=== PATIENT | male | born 1980 ===

== ENCOUNTER 2018-07-16 15:45 | Emergency (ER) | payer OTHER ==
[2018-07-16] MEDS ORDERED: amLODIPine BESYLATE 5 MG TABLET PO ONE (16:18)
[2018-07-16] MEDS ORDERED: HYDROCHLOROTHIAZIDE 25 MG TABLET PO ONE ×2 (16:18→16:33)
[2018-07-16] MEDS ORDERED: ACETAMINOPHEN 500 MG TABLET PO ONE (16:20)
[2018-07-16 17:14] LABS: eGFR (Non-African) > 60
[2018-07-16 17:16] LABS: MEAN CORPUSCULAR HEMOGLOBIN 21.8 pg (28.0-34.0)
[2018-07-16 17:17] LABS: BASOPHILS % 0.6 (0.0-1.5); EOSINOPHILS % 1.9 % (0.0-6.8); MONOCYTES % 6.1 % (0.0-11.0); NEUTROPHILS # 4.3 # k/uL (1.4-7.7)
[2018-07-16 17:24] LABS: APPEARANCE,URINE CLEAR (CLEAR); COLOR,URINE YELLOW (YELLOW); OCCULT BLOOD,URINE NEGATIVE (NEGATIVE)
[2018-07-16 17:25] LABS: AMORPHOUS SEDIMENT,UR FEW (NEGATIVE); UROBILINOGEN URINE 0.2 Eu (0.2-1.0)
--- NOTE | 2018-07-16 17:25 | ED Physician Documentation ---
General Adult - HISTORIAN Historian: patient - HPI Stated Complaint: DUNCAN with possible high blood pressure Chief Complaint: General Adult Additional Information: Out of BP meds for 3 weeks. DUNCAN since last evening. Just doesn't feel good today. [facility]. Takes amlodipine 5 mg daily and HCTZ 25 mg daily. - ROS CONST: other (above) - PAST HX Past History: hypertension, other (RLS, pre-daibetic) Allergies/Adverse Reactions: Allergies Allergy/AdvReac Type Severity Reaction Status Date / Time No Known Allergies Allergy Verified 07/16/18 16:11 Home Medications: Ambulatory Orders Medication Instructions Recorded Hydrochlorothiazide 25 mg PO DAILY #10 tablet 07/16/18 Hydrochlorothiazide [Hydrodiuril] 25 mg PO DAILY 07/16/18 Ropinirole HCl [Requip] 0.5 mg PO TID 07/16/18 amLODIPine BESYLATE [Norvasc] 5 mg PO 0900 #10 tablet 07/16/18 amLODIPine BESYLATE [Norvasc] 5 mg PO QDAY 07/16/18 - SOCIAL HX Smoking History: chew (quit 6 months ago. Using nicotine gum. ) - FAMILY HX Family History: Yes (MS, DM, HTN) - VITAL SIGNS Vital Signs: Vital Signs Temp Pulse Resp BP Pulse Ox 98.0 F 110 H 20 174/119 94 07/16/18 15:46 07/16/18 15:46 07/16/18 15:46 07/16/18 15:46 07/16/18 15:46 - REVIEWED ASSESSMENTS Nursing Assessment Reviewed: Yes Vitals Reviewed: Yes Progress - Progress Progress: 1720, BP 124/77. DUNCAN much improved. Home. ED Results Lab/Radiology - Lab Results Lab Results: Lab Results 07/16/18 07/16/18 16:35 16:35 WBC 7.60 K/ul K/ul (4.00-12.00) RBC 6.57 M/ul H M/ul (3.90-5.20) Hgb 14.3 g/dL g/dL (12.0-18.0) Hct 44.6 % % (37.0-53.0) MCV 68.0 fl L fl (80.0-100.0) MCH 21.8 pg L pg (28.0-34.0) MCHC 32.1 g/dL g/dL (30.0-36.0) RDW 15.7 % H % (11.3-14.3) Plt Count 281 K/mm3 K/mm3 (130-400) Neut % (Auto) 57.3 % % (39.0-79.0) Lymph % (Auto) 34.1 % % (16.0-50.0) Kemper % (Auto) 6.1 % % (0.0-11.0) Eos % (Auto) 1.9 % % (0.0-6.8) Baso % (Auto) 0.6 (0.0-1.5) Neut # (Auto) 4.3 # k/uL # k/uL (1.4-7.7) Lymph # (Auto) 2.6 # k/uL # k/uL (0.6-4.0) Kemper # (Auto) 0.5 # k/uL # k/uL (0.0-0.9) Eos # (Auto) 0.1 # k/uL # k/uL (0.0-0.6) Baso # (Auto) 0.1 # k/uL # k/uL (0.0-0.5) Sodium 138 mmol/L mmol/L (136-145) Potassium 4.2 mmol/L mmol/L (3.5-5.1) Chloride 101 mmol/L mmol/L (98-107) Carbon Dioxide 28 mmol/L mmol/L (22-30) BUN 12 mg/dL mg/dL (9-20) Creatinine 1.00 mg/dL mg/dL (0.66-1.25) Estimated Creat Clear 178 Est GFR ( Amer) > 60 (60 - ) Est GFR (Non-Af Amer) > 60 (60 - ) Glucose 111 mg/dL H mg/dL (74-106) Calcium 9.0 mg/dL mg/dL (8.4-10.2) Total Bilirubin 0.8 mg/dL mg/dL (0.2-1.3) AST 32 U/L U/L (15-46) ALT 45 U/L U/L (13-69) Alkaline Phosphatase 114 U/L U/L (38-126) Total Protein 7.5 g/dL g/dL (6.3-8.2) Albumin 4.5 g/dL g/dL (3.5-5.0) - Orders Orders: ED Orders Category Date Time Status Place IV Lock 1T Care 07/16/18 16:11 Active CBC/PLATELET/DIFF Routine Lab 07/16/18 16:35 Completed CMP Routine Lab 07/16/18 16:35 Completed GLYCOHEMOGLOBIN A1C with eAG Routine Lab 07/16/18 16:35 Received URINALYSIS Routine Lab 07/16/18 16:44 Received Acetaminophen [Tylenol Extra Strength] Med 07/16/18 16:20 Discontinued 1,000 mg PO NOW ONE Hydrochlorothiazide [Hydrodiuril] Med 07/16/18 16:33 Discontinued 25 mg PO .STK-MED ONE Hydrochlorothiazide [Hydrodiuril] Med 07/16/18 16:18 Discontinued 25 mg PO DAILY ONE amLODIPine BESYLATE [Norvasc] Med 07/16/18 16:18 Discontinued 5 mg PO NOW ONE General Adult Physical Exam - PHYSICAL EXAM GENERAL APPEARANCE: mild distress EENT: eye inspection normal, ENT inspection normal NECK: normal inspection, supple RESPIRATORY: no resp distress, breath sounds normal CVS: reg rate & rhythm, heart sounds normal BACK: normal inspection SKIN: warm/dry, normal color EXTREMITIES: no evidence of injury NEURO: CN's nml as tested, motor nml, sensation nml Discharge Clincal Impression: Hypertension Qualifiers: Hypertension type: unspecified Qualified Code(s): I10 - Essential (primary) hypertension Prescriptions: amLODIPine BESYLATE [Norvasc] 5 mg PO 0900 #10 tablet Hydrochlorothiazide 25 mg PO DAILY #10 tablet Referrals: Primary Doctor,No [Primary Care Provider] - 2 Days Condition: Good Disposition: 01 HOME, SELF-CARE Decision to Admit: NO Decision Time: 17:20
[2018-07-16 17:38] VITALS: BP 124/77
== END 2018-07-16 17:30 | disposition home or self-care (01) ==
LOC: ED 15:45
DX: I10 Essential (primary) hypertension (principal); E13.9 Other specified diabetes mellitus without complications; Z72.0 Tobacco use
CPT/HCPCS: 36415; 80053; 81002; 83036; 85025; 99282; 99283